=== PATIENT | female | born 1975 ===

== ENCOUNTER 2020-11-27 16:15 | Outpatient (REF) | payer OTHER, SELFPAY ==
[2020-11-27 20:26] LABS: Abs Immature Grans 0.05 10^3/uL (0.0-0.06); Absolute Basophil Count 0.06 10^3/uL (0.0-0.2); Absolute Eosinophil Count 0.15 10^3/uL (0.0-0.7); Absolute Lymphocyte Count 1.36 10^3/uL (1.2-3.4); Absolute Monocyte Count 0.79 10^3/uL (0.1-0.8); Absolute Neutrophil Count 6.11 10^3/uL (1.2-6.7); Basophils % 0.7; Eosinophils % 1.8; HCT 45.6 % (36.0-46.0); HGB 14.8 g/dL (11.2-15.7); Immature Grans % 0.6; MCH 26.7 pg (27.0-33.0); MCHC 32.5 % (32.0-36.0); MCV 82.3 fL (80-95); MPV 11.5 fL (8.0-11.0); Monocytes % 9.3; Neutrophils % 71.6; Nucleated RBC 0 %; Platelet Count 286 10^3/uL (130-400); RBC 5.54 10^6/uL (3.93-5.22); RDW 12.7 % (11.7-14.6); RDW-SD 38.3 fL; WBC 8.52 10^3/uL (4.4-10.8)
[2020-11-27 20:52] LABS: ALT 31 U/L (14-59); AST 13 U/L (15-37); Albumin 4.1 g/dL (3.4-5.0); Alkaline Phosphatase 117 U/L (46-116); Anion Gap 8.1 mmol/L (3-11); BUN 17 mg/dL (7-18); Bilirubin, Total 0.4 mg/dL (0.2-1.0); CO2 28.9 mmol/L (21.0-32.0); CREATININE 0.7 mg/dL (0.55-1.02); Calcium 9.5 mg/dL (8.5-10.1); Chloride 102 mmol/L (98-107); Glucose 119 mg/dL (74-106); Lipase 152 U/L (73-393); Potassium 4.4 mmol/L (3.5-5.1); Sodium 139 mmol/L (136-145); Total Protein 7.5 g/dL (6.4-8.2)
== END 2020-11-27 16:16 | disposition home or self-care (01) ==
LOC: NCHCN 16:15
PROVIDERS: PCP Nurse Practitioner Community Health; Visit Provider Family Medicine
DX: R10.13 Epigastric pain (principal); R19.7 Diarrhea, unspecified
CPT/HCPCS: 80053; 83690; 87505; 85025

== ENCOUNTER 2022-06-01 16:04 | Outpatient (REF) | payer BC, SELFPAY ==
[2022-06-02 22:51] LABS: Campylobacter PCR Negative (Negative); Salmonella PCR Negative (Negative); Shiga Toxin PCR Negative (Negative); Shigella/Enteroinvasive Ecoli Negative (Negative)
== END 2022-06-01 16:05 | disposition home or self-care (01) ==
LOC: NCHCN 16:04
PROVIDERS: PCP Nurse Practitioner Community Health; Visit Provider Internal Medicine
DX: K92.1 Melena (principal)
CPT/HCPCS: 87505; 87177

== ENCOUNTER 2024-05-22 18:59 | Outpatient (REF) | payer BC, SELFPAY ==
[2024-05-22 21:26] LABS: COMMENT (LAB VIEW ONLY) 38.77 mg/dL; Microalb ug/mg Crea 8.3 ug/mg Cr
== END 2024-05-22 19:00 | disposition home or self-care (01) ==
LOC: NCHCN 18:59
PROVIDERS: PCP Nurse Practitioner Community Health; Visit Provider Nurse Practitioner Family
DX: E11.9 Type 2 diabetes mellitus without complications (principal)
CPT/HCPCS: 82043; 82570